=== PATIENT | female | born 1960 | race Caucasian/White ===

== ENCOUNTER 2019-10-21 16:17 | Emergency (ER) | payer OTHER ==
[~2019-10-21] VITALS: Ht 172.7 cm; Wt 79.4 kg
--- NOTE | 2019-10-21 18:46 | NUR ---
US PATIENT TAKEN TO US VIA WHEELCHAIR
[2019-10-21 19:07] VITALS: BP 124/63
[2019-10-21] MEDS ORDERED: SOLU-MEDROL IM STA (19:15)
--- NOTE | 2019-10-21 19:24 | ER.PDOC ---
General Chief Complaint: Requesting Medical Care Stated Complaint: PAIN RIGHT KNEE Time seen by MD: 18:40 Source: patient, family Exam Limitations: no limitations History of Present Illness Initial Comments History of right knee pain, and increased swelling of knee and right leg. Patient recently seen by her chiropractor Onset: last week Context: other (no trauma or injury) Severity: moderate Reviewed Nursing Reviewed: Vital Signs, Abn. Noted, Nursing Assessment Review of Systems Constitutional: no symptoms reported EENTM: no symptoms reported Respiratory: no symptoms reported Cardiovascular: no symptoms reported Gastrointestinal: no symptoms reported Genitourinary: no symptoms reported Musculoskeletal: joint pain (right knee, with posterior swelling) Skin: no symptoms reported Psychiatric/Neurological: no symptoms reported All Other Systems: Reviewed and Negative Physical Exam General Appearance: Alert, No Apparent Distress Foot: nml inspection, non-tender, nml color/temp, skin intact Ankle: nml inspection, non-tender, nml ROM, no joint swelling, skin intact Knee: nml inspection, nml ROM, tenderness, swelling, joint effusion Thigh/Hip: nml inspection Gait: normal, antalgic gait Neuro/Vasc/Tendon: sensation nml, motor nml, no vascular compromise, tendon function nml Skin: warm/dry Head/ENT: nml inspection, pharynx nml Neck/Back: nml inspection, non-tender Abdomen: non-tender, pelvis stable Comments posterior swelling right knee (consistent with Abel's Cyst) Minimal calf tenderness. Results/Orders Results/Orders Orders - KEYANA KELLEY DO D-Dimer (10/21/19 17:15) Us Bilat Lower Ext Venous Dopp (10/21/19 17:15) Ketorolac Tromethamine (Toradol) (10/21/19 19:30) Methylprednisolone Sod Succ (Solu-Medrol (10/21/19 19:15) Hydromorphone Hcl (Dilaudid) (10/21/19 19:30) Ketorolac Tromethamine (Toradol) (10/21/19 19:42) Vital Signs Date Time Temp Pulse Resp B/P (MAP) Pulse Ox O2 Delivery O2 Flow Rate FiO2 10/21/19 19:14 98.1 84 16 98 10/21/19 19:07 98.1 84 16 98 10/21/19 19:07 98.1 84 16 98 Laboratory Tests Test 10/21/19 17:30 D-Dimer 1.32 mg/L (0.19-0.49) *H EKG/XRAY/CT/US Ultrasound: normal (no DVT) Departure Time of Disposition: 19:52 Disposition: 01 HOME, SELF-CARE Impression: Primary Impression: Knee osteoarthritis Additional Impression: Abel's cyst of knee Condition: Stable Patient Instructions: Abel's Cyst, Osteoarthritis Referrals: PCP,UNKNOWN (PCP) PRIMARY CARE PROVIDER Additional Instructions: Rest, Ice, activity as tolerated. Follow up with PCP in 1 week. Duration or Time Spent with Pa: 30 Return to Work/School Can a patient return to work?: Yes Problem Qualifiers Primary Impression: Knee osteoarthritis Osteoarthritis type: primary Laterality: right Qualified Codes: M17.11 - Unilateral primary osteoarthritis, right knee Additional Impression: Abel's cyst of knee Laterality: right Qualified Codes: M71.21 - Synovial cyst of popliteal space [Abel], right knee KEYANA KELLEY DO Oct 21, 2019 19:24
--- NOTE | 2019-10-21 19:28 | DIREP ---
PROCEDURE:US VENOUS IMAGING BILAT COMPARISON:None. INDICATIONS:LE Edema and Pain, Elevated d-dimer TECHNIQUE:The lower extremities were evaluated utilizing oh scale images with segmental compression, color Doppler, and spectral Doppler with respiratory variation and augmentation. FINDINGS: RIGHT External iliac vein: Patent Common femoral vein:Patent Profunda femoris: Patent Superficial femoral vein:Patent Popliteal vein:Patent Posterior tibial vein:Patent Peroneal vein: Patent Anterior tibial vein:Patent Greater saphenous vein:Patent Waveforms: Within normal limits. LEFT External iliac vein: Patent Common femoral vein:Patent Profunda femoris: Patent Superficial femoral vein:Patent Popliteal vein:Patent Posterior tibial vein:Patent Peroneal vein: Patent Anterior tibial vein:Patent Greater saphenous vein:Patent Waveforms: Within normal limits. There is a right Abel's cyst measuring 4.9 x 2.8 x 4.1 cm. CONCLUSION:Normal bilateral Doppler ultrasound examination of the lower extremity veins. No evidence of deep venous thrombosis. There is a right-sided Abel's cyst. Dictated by: Thien Armendariz M.D. on 10/21/2019 at 07:25 PM
[2019-10-21] MEDS ORDERED: TORADOL IM ONE (19:30)
[2019-10-21] MEDS ORDERED: DILAUDID IM PRN (19:30)
[2019-10-21] MEDS ORDERED: SOLU-MEDROL ONE (19:41)
[2019-10-21] MEDS ORDERED: TORADOL ONE (19:42)
[2019-10-21] MEDS ORDERED: DILAUDID ONE (19:42)
== END 2019-10-21 20:00 | disposition home or self-care (01) ==
LOC: ER 16:17
DX: M17.11 Unilateral primary osteoarthritis, right knee (principal); M71.21 Synovial cyst of popliteal space [Baker], right knee
CPT/HCPCS: 36415; 85379; 93970; 96372; 99284; J1170; J1885; J2930